=== PATIENT | female | born 1950 | race Caucasian/White ===

== ENCOUNTER 2019-06-20 08:01 | Emergency (ER) | payer MEDICARE ==
[2019-06-20 08:19] VITALS: BP 137/70
[2019-06-20] MEDS ORDERED: Albuterol/Ipratropium NEB.SOL* Albuterol 2.5 MG/Ipratropium 0.5 MG 3 ML INH ONE (08:39)
--- NOTE | 2019-06-20 08:45 | UC ---
Respiratory Complaint HPI - HPI Summary HPI Summary: Patient presents to urgent care which of complaints. One, patient was diagnosed with influenza last week. Patient states she took 2 doses of Tamiflu vomited after both times to not take anymore. Patient states she feels it settled in her chest. Patient is coughing and bringing up what is now brown mucus. Patient states she has an inhaler has used a couple times with improvement. Patient states she her head congestion and sore throat have improved. Patient states she just generally feels fatigued. Patient concerned she could be getting pneumonia as she's had this before. Secondly, patient reported diagnosis of eczema for which she has dry scaly skin patches on her face in neck arms. Patient states she's been using [id number] hydrocortisone cream as well as Beclovent. Patient has an area on her right ear that she feels is getting worse. Patient states she is concerned she could be having a superimposed infection. Patient has not contacted her deicer finisher about this. Patient does not smoke or be. Patient's medications is on the EMR reviewed this visit. She has taken Robitussin-DM once but no other [id number] medications to treat her cough. - History of Current Complaint Chief Complaint: UCRespiratory Stated Complaint: COUGH AND SKIN COMPLAINT Time Seen by Provider: 06/20/19 08:27 Hx Obtained From: Patient Onset/Duration: Gradual Onset Pain Intensity: 0 - Allergies/Home Medications Allergies/Adverse Reactions: Allergies Allergy/AdvReac Type Severity Reaction Status Date / Time No Known Allergies Allergy Verified 06/20/19 08:10 PMH/Surg Hx/FS Hx/Imm Hx Previously Healthy: Yes - Surgical History Surgical History: Yes Surgery Procedure, Year, and Place: tubal - Family History Known Family History: Positive: Non-Contributory - Social History Occupation: Retired Lives: With Family Alcohol Use: None Substance Use Type: None Smoking Status (MU): Never Smoked Tobacco Review of Systems All Other Systems Reviewed And Are Negative: Yes Constitutional: Positive: Fatigue Skin: Positive: Rash Eyes: Positive: Negative ENT: Positive: Sore Throat, Sinus Congestion Respiratory: Positive: Shortness Of Breath, Cough Cardiovascular: Positive: Negative Gastrointestinal: Positive: Negative Genitourinary: Positive: Negative Physical Exam - Summary Physical Exam Summary: Vital Signs Reviewed: Yes A+Ox3, no distress, coarse, thick cough Eyes: Conjunctiva Clear, SIERRA. EOM intact and full ENT: Hearing grossly normal TM x 2 clear, turbinates inflammed and boggy, + PND , mmoist, uvula midline, no exudate, mild erythema Neck: Positive: Supple Respiratory: Positive: No respiratory distress, No accessory muscle use + coarse thick cough, scattered wheeze, rhonci right base Cardiovascular: RRR nl s1, s2 no m/r CBT <2 sec abd soft + BS nt/nd no guarding, no distension Musculoskeletal Exam: MATTHEWS x 4 without difficulty Strength Intact, ROM Intact Neurological: Positive: Alert, + sensation throughout Psychological: Positive: Normal Response To examiner Skin: Positive: pt with dry, scaly rash external right ear mild erythema, edema anterior margin of ear - forward of tragus no abscess, no open wound Triage Information Reviewed: Yes Vital Signs: Initial Vital Signs Temp 98.8 F 06/20/19 08:11 Pulse 78 06/20/19 08:11 Resp 18 06/20/19 08:11 BP 137/70 06/20/19 08:11 Pulse Ox 98 06/20/19 08:11 Diagnostics - Radiology No standard instances Radiology Interpretation Completed By: Radiologist - Patient Name: JABARI DE LA ROSA Medical Record#: [id number] Ordering Physician: Angelica Dominguez MD Acct.#: [id number] : 1950 Age: 68 Sex: F Location: [facility] Exam Date: 06/20/19838 ADM Status: REG ER Order Information: CHEST PA & LAT 2 VWS Accession Number: [id number] CPT: 19658 HISTORY: cough, right base rhonci, + flu, asthma COMPARISONS: June 25, 2009 VIEWS: 4: Frontal dual-energy and lateral views of the chest. FINDINGS: CARDIOMEDIASTINAL SILHOUETTE: The cardiomediastinal silhouette is normal. JAMIE: The jamie are normal. PLEURA: The costophrenic angles are sharp. No pleural abnormalities are noted. LUNG PARENCHYMA: There is hyperinflation with flattening of the diaphragm and expansion of the AP diameter of the chest. ABDOMEN: The upper abdomen is clear. There is no subphrenic gas. BONES AND SOFT TISSUES: Degenerative changes are noted along the spine. OTHER: None. IMPRESSION: HYPERINFLATION, CONSISTENT WITH COPD. NO ACTIVE CARDIOPULMONARY DISEASE. <Electronically signed by Teofilo Clarke MD in OV> 06/20/19853 Dictated By: Teofilo Clarke MD Dictated Date/Time: 853 Transcribed Date/Time: 06/20/19853 Copy to: CC:Angelica Dominguez MD ; Chun Maza III, MD Imaging - [facility] - [place] [facility] [address] [address] ph ) ph ([phone]) ph ([phone]) This report is only to be considered final once signed by the Provider(s) as displayed in the "< Electronically Signed by >" field (s). Absence of a signature indicates the report is in a draft status and still needs to be finalized. In the event this document was created by someone other than the signing Provider, the individual initiating the document will be listed in the "Entered by:" or "Dictated by:" clark. 1 of 1 Re-Evaluation - Re-Evaluation First Eval Comment: PT reports feeling better following nebulizer - cough improved. on exam wheeze improved. CXR neg. will Rx pred, abx. humidified air. secretion precaution. return precaution. pt comfortable and in agreement with plan Respiratory Course/Dx - Course Course Of Treatment: Patient presents to urgent care with 2 complaints. Patient recently diagnosed with influenza. Patient states she took 2 doses of the Tamiflu, so did not continue taking. Patient states she knows progressed to a thick cough with brown sputum. Patient states she feels wheezy at times. Patient does have a history of asthma. Patient states she's never been admitted and has not been on prednisone several years for asthma. On exam vital signs reviewed. Patient has had a very thick coarse cough. Patient was scattered wheeze and rhonchi in the right base. Concern patient could have superimposed pneumonia. Discussed with patient with a chest x-ray DuoNeb and reassessed. Blood pressure patient antibiotics given her asthma history. Additionally patient does have some erythema in the anterior part of her ear. Unclear whether this is inflammatory changes from itching and eczema versus early infection. We'll use doxycycline to cover both urinary and skin. Return precautions discussed. Patient comfortable and agreeable with plan. - Differential Dx/Diagnosis Provider Diagnosis: Acute bronchitis Discharge ED - Sign-Out/Discharge Documenting (check all that apply): Patient Departure All imaging exams completed and their final reports reviewed: Yes - Discharge Plan Condition: Stable Disposition: HOME Prescriptions: Albuterol HFA INHALER* [Ventolin HFA Inhaler*] 1 - 2 puff INH Q4H PRN #1 mdi PRN Reason: cough, wheeze Amoxicillin/Clavulanate TAB* [Augmentin TAB 875*] 875 mg PO BID #20 tab predniSONE 50 mg TAB [Deltasone 50 mg TAB] 50 mg PO DAILY #5 tab Patient Education Materials: Acute Bronchitis (ED) Referrals: Micaela Mayes [Medical Doctor] - Chun Maza MD [Primary Care Provider] - Additional Instructions: -Take antibiotics exactly as prescribed until gone - take prednisone as prescribed -Use your albuterol puffer - 2 puffs every 4 hours for the next 2 days - then as needed -Stay well hydrated - avoid excess caffeine and all alcohol - eat regular, healthy meals - humidify the air in the room where you sleep - boil water, run a hot steam shower, vaporizer, cups of water by heat register - okay to take over the counter decongestant and cough medication -- These infections are spread by secretions - do NOT share eating or drinking utensils - clean items you share with other people such as cell phones, computer mouse, TV remote, computer tablets,etc.. Once you have been antibiotics for 2 days, change your toothbrush and your pillowcase. -Contact your doctor to arrange a follow-up appointment this week. Call your doctor, return here or go to the emergency department with any questions or concerns - Billing Disposition and Condition Condition: STABLE Disposition: Home
== END 2019-06-20 09:30 | disposition home or self-care (01) ==
LOC: UCEAST 08:01
DX: J20.9 Acute bronchitis, unspecified (principal); R91.8 Other nonspecific abnormal finding of lung field; R09.81 Nasal congestion
CPT/HCPCS: 71046; 99212; A9270-GY; G0463

== ENCOUNTER 2023-06-30 11:02 | Observation (INO) ==
[2023-06-30] MEDS: NS 0.9% 1000 ml BAG 1,000 ML IV ONE (12:07)
[2023-06-30 12:18] LABS: ABS Lymphocytes 0.4 10^3/uL (1.0-4.8); ABS Monocytes 0.5 10^3/uL (0.0-0.9); ABS Neutrophils 10.2 10^3/uL (1.5-7.6); Hematocrit 41.8 % (35-45); Hemoglobin 14.4 g/dL (11.5-14.3); Lymphocyte % 3.2 %; Mean Corpuscular Hemoglobin 30.4 pg (27-33); Mean Corpuscular Hgb Conc 34.3 g/dL (31-36); Mean Corpuscular Volume 88.5 fL (80-97); Mean Platelet Volume 6.7 fL (7.5-11.2); Platelet Count 303 10^3/uL (150-450); Red Blood Count 4.72 10^6/uL (3.63-4.92); Red Cell Distribution Width 13.3 % (12-17); White Blood Count 11.1 10^3/uL (3.8-11.8)
[2023-06-30 12:55] LABS: Albumin 4.9 g/dL (3.2-5.2); Albumin/Globulin Ratio 2.1 (1-3); Calcium 9.9 mg/dL (8.6-10.3); Creatinine, Serum 1.1 mg/dL (0.51-0.95); Globulin 2.3 g/dL (2-4); Potassium 4.5 mmol/L (3.5-5.0); Total Bilirubin 0.8 mg/dL (0.2-1.0); Total Protein 7.2 g/dL (6.4-8.9); eGFR CKD-EPI 53.1 (>60)
[2023-06-30] MEDS: Morphine 4 MG/ML VIAL (1 ml) IV ONE (13:04)
[2023-06-30] MEDS: Ondansetron 4 mg VIAL 2 MG/ML 2 ml VIAL IV ONE (13:05)
[2023-06-30] MEDS: Acetaminophen IV 1 GM/100ML 1,000 MG/100 ML BAG IV ONE (13:06)
[2023-06-30 13:42] LABS: Urine Appearance Clear; Urine Bilirubin Negative (Negative); Urine Blood 3+ (Negative); Urine Color Light-Yellow; Urine Glucose 1+ (>=70 mg/dL) (Negative); Urine Ketones 3+ (Negative); Urine Nitrite Negative (Negative); Urine Protein Trace (Negative); Urine Specific Gravity 1.024 (1.002-1.030); Urine Urobilinogen Negative (Negative); Urine pH 5.5 (5.0-8.0)
[2023-06-30 13:44] LABS: Urine Bacteria Absent /HPF (Absent); Urine Red Blood Cell 3+(>10/hpf) /HPF (0-Trace); Urine Squamous Epithelial Cell Present /HPF (Absent); Urine White Blood Cell Trace(0-5/hpf) /HPF (0-Trace)
[2023-06-30] MEDS: Iodixanol (CONTRAST) 320 MG/ML 100 ML SDV IV ONE (14:26)
[2023-06-30] MEDS ORDERED: Iohexol 180 (CONTRAST) 10 ML SDV IV ONE (16:55)
[2023-06-30] MEDS: cefTRIAXone 2 gm/50 mL D5W 2 GM/50 ML BAG IV ONE (17:04)
[2023-06-30] MEDS ORDERED: Ondansetron 4 mg VIAL 2 MG/ML 2 ml VIAL IV PRN (17:16)
[2023-06-30] MEDS ORDERED: Albuterol HFA INHALER 8 gm MDI INH PRN (17:16)
[2023-06-30] MEDS ORDERED: Prochlorperazine 5 mg/ml 2 ml VIAL (10 mg) IV PRN (17:20)
[2023-06-30] MEDS ORDERED: Lidocaine 2% PF 5 ML VIAL ONE (17:24)
[2023-06-30] MEDS ORDERED: Propofol 10 MG/ML 20 ML BTL ONE ×2 (17:24→18:10)
[2023-06-30] MEDS ORDERED: fentaNYL 100 mcg/2 ml 50 MCG/ML VIAL ONE (17:25)
[2023-06-30] MEDS ORDERED: Midazolam 2 mg/2 ml VIAL 1 mg/ml 2 ml VIAL (2 mg) ONE (18:08)
[2023-06-30] MEDS ORDERED: Levalbuterol 0.63MG/3ML NEB UNIT OF USE INH PRN (18:20)
[2023-06-30] MEDS ORDERED: Naloxone 0.4 mg VIAL 0.4 mg/ml 1 ml VIAL IV PRN (18:20)
[2023-06-30] MEDS ORDERED: fentaNYL 100 mcg/2 ml 50 MCG/ML VIAL IV PRN (18:20)
[2023-06-30] MEDS ORDERED: Ondansetron 4 mg VIAL 2 MG/ML 2 ml VIAL ONE (18:21)
[2023-06-30] MEDS ORDERED: Dexamethasone IV 4 MG/ML VIAL 1 ml VIAL ONE (18:21)
[2023-07-01 06:07] VITALS: BP 123/93
[2023-07-01 07:11] LABS: Calcium 9.3 mg/dL (8.6-10.3); Creatinine, Serum 0.81 mg/dL (0.51-0.95); Potassium 4.8 mmol/L (3.5-5.0); eGFR CKD-EPI 76.6 (>60)
== END 2023-07-01 09:20 | disposition home or self-care (01) ==
LOC: ED 11:02 → EDHOLD 11:02 → AA 17:15 → SSU 21:47
PROVIDERS: ADMIT Student in an Organized Health Care Education/Training Program; ATTEND Student in an Organized Health Care Education/Training Program